=== PATIENT | male | born 1985 | race Two or more races ===

== ENCOUNTER 2024-09-16 05:15 | Inpatient (IN) | payer OTHER ==
[~2024-09-16] VITALS: Ht 182.9 cm; Wt 90.7 kg
[2024-09-16] MEDS ORDERED: HYDROmorphone HCl/Pf 1MG SYR IV ONE (05:45)
[2024-09-16] MEDS ORDERED: NS 1,000 ML IV SCH (05:45)
[2024-09-16] MEDS ORDERED: Ondansetron HCl 2 MG / ML 2ML Vial IV ONE (05:45)
[2024-09-16 06:10] LABS: Alanine Aminotransfer (ALT/SGP 24.0 U/L (12-78); Albumin, Blood 3.5 g/dL (3.4-5.0); Albumin/Globulin Ratio 0.6 (0.8-1.8); Anion Gap 12.0 mmol/L (3-11); Aspartate Aminotrans (AST/SGOT 38.0 U/L (12-37); Bilirubin, Total 0.7 mg/dL (0.1-1.0); Blood Urea Nitrogen 8.0 mg/dL (8-24); CO2, Blood 20.0 mmol/L (21-32); Calcium, Blood 9.6 mg/dL (8.5-10.1); Chloride, Blood 107.0 mmol/L (98-108); Creatinine, Blood 0.94 mg/dL (0.60-1.20); Globulin, Blood 5.4 g/dL (2.2-4.0); Glucose, Blood 133.0 mg/dL (70-99); Potassium, Blood 4.7 mmol/L (3.5-5.5); Sodium, Blood 134.0 mmol/L (136-145); Total Protein, Blood 8.9 g/dL (6.4-8.2)
[2024-09-16 06:12] LABS: BASOPHILS ABSOLUTE AUTO 0.09 K/mm3 (0.00-0.23); BASOPHILS PERCENT AUTO 0 % (0-2); EOSINOPHILS ABSOLUTE AUTO 0.18 K/mm3 (0.00-0.68); EOSINOPHILS PERCENT AUTO 1 % (0-6); Hematocrit 50.8 % (37.0-53.0); Hemoglobin 15.9 g/dL (13.5-17.5); IMMATURE GRAN ABSOLUTE AUTO 0.13 K/mm3 (0.00-0.10); IMMATURE GRAN PERCENT AUTO 1 % (0-1); LYMPHOCYTES ABSOLUTE AUTO 3.16 K/mm3 (0.84-5.20); LYMPHOCYTES PERCENT AUTO 14 % (21-46); MONOCYTES ABSOLUTE AUTO 1.59 K/mm3 (0.16-1.47); MONOCYTES PERCENT AUTO 7 % (4-13); Mean Corpuscular HGB Conc 31.3 g/dL (31.5-36.5); Mean Corpuscular Volume 81 fL (80-100); NEUTROPHILS ABSOLUTE AUTO 17.36 K/mm3 (1.96-9.15); NEUTROPHILS PERCENT AUTO 77 % (41-73); NRBC ABSOLUTE 0.00 K/mm3 (0.00-0.02); NRBC Auto 0.0 /100 WBC (0.0-0.2); RDW Coefficient Variation 19.8 % (11.7-14.2); RDW Standard Deviation 55.2 fL (35.1-46.3)
[2024-09-16 06:31] LABS: Platelet Count 358 K/mm3 (150-400)
[2024-09-16 09:46] LABS: Source, Urine Clean Catch
[2024-09-16 09:52] LABS: Bilirubin, Urine Neg (Neg); Color, Urine Yellow (P-Yellow); Glucose Qualitative, Urine Neg (Neg); Ketones, Urine Neg (Neg); Leukocyte Esterase, Urine Neg (Neg); Protein, Urine 2+ (Neg); Specific Gravity, Urine 1.010 (1.003-1.022); Urobilinogen, Urine NORM (Normal)
[2024-09-16 10:00] LABS: Red Blood Cells, Urine 0-2 /hpf (0-2); White Blood Cells, Urine 0-2 /hpf (0-5)
[2024-09-16] MEDS ORDERED: Ondansetron HCl 2 MG / ML 2ML Vial IV PRN (10:15)
[2024-09-16] MEDS ORDERED: HYDROmorphone HCl/Pf 1MG SYR IV PRN (11:05)
[2024-09-16 13:16] VITALS: BP 120/75
[2024-09-16 15:34] VITALS: BP 121/77
--- NOTE | 2024-09-16 19:42 | NUR ---
ASSUMPTION OF CARE. CLIENT ADMITTED TO FROM THE ED FOR SMALL BOWEL OBSTRUCTION. 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 SPEAKS PRIMARILY ARIBIC. BACON SKIN LIFTER PHONE PLACED IN CLIENTS ROOM. CLIENT REMAINS ON NPO DIET WITH LR INFUSING AT 125ML/HOUR. ABDOMINAL CT PERFORMED IN ED. CLIENT C/O OF PAIN/TENDERNESS TO UPPER RIGHT QUADRANT OF ABDOMEN. BED IS IN LOW POSITION AND CALL LIGHT IS WITHIN REACH.
[2024-09-16 20:44] VITALS: BP 116/62
--- NOTE | 2024-09-17 04:17 | NUR ---
SHIFT SUMMARY PATIENT IS ALERT AND ORIENTED. PATIENT HAS HAD NO ACUTE EVENTS THIS SHIFT. VITAL SIGNS REVIEWED. PATIENT HAS COMPLAINED OF PAIN THIS SHIFT. PATIENT HAS HAD NO COMPLAINTS OF SOB, NAUSEA OR VOMITTING. BED IN LOCKED AND LOWEST POSITION.
[2024-09-17 04:34] VITALS: BP 113/67
[2024-09-17 05:46] LABS: Hematocrit 40.7 % (37.0-53.0); Hemoglobin 12.9 g/dL (13.5-17.5); Mean Corpuscular HGB Conc 31.7 g/dL (31.5-36.5); Mean Corpuscular Volume 82 fL (80-100); NRBC ABSOLUTE 0.00 K/mm3 (0.00-0.02); NRBC Auto 0.0 /100 WBC (0.0-0.2); RDW Coefficient Variation 18.6 % (11.7-14.2); RDW Standard Deviation 55.2 fL (35.1-46.3)
[2024-09-17 06:30] LABS: Platelet Count 202 K/mm3 (150-400)
[2024-09-17 08:05] VITALS: BP 115/68
[2024-09-17] MEDS ORDERED: Enoxaparin 40 MG/0.4 ML SYR SC SCH (09:00)
[2024-09-17 12:38] LABS: Alanine Aminotransfer (ALT/SGP 18.0 U/L (12-78); Albumin, Blood 2.7 g/dL (3.4-5.0); Albumin/Globulin Ratio 0.7 (0.8-1.8); Anion Gap 14.0 mmol/L (3-11); Aspartate Aminotrans (AST/SGOT 15.0 U/L (12-37); Bilirubin, Total 0.6 mg/dL (0.1-1.0); Blood Urea Nitrogen 7.0 mg/dL (8-24); CO2, Blood 28.0 mmol/L (21-32); Calcium, Blood 8.8 mg/dL (8.5-10.1); Chloride, Blood 106.0 mmol/L (98-108); Creatinine, Blood 0.96 mg/dL (0.60-1.20); Globulin, Blood 4.0 g/dL (2.2-4.0); Glucose, Blood 77.0 mg/dL (70-99); Potassium, Blood 4.7 mmol/L (3.5-5.5); Sodium, Blood 143.0 mmol/L (136-145); Total Protein, Blood 6.7 g/dL (6.4-8.2)
--- NOTE | 2024-09-17 18:20 | NUR ---
SHIFT SUMMARY NO ACUTE CHANGES, A/Ox4, ABLE TO MAKE NEEDS KNOWN USING HOSPITAL PROVIDER SERVICE DESK ANALYST SERVICES. TREATED FOR PAIN PER EMAR - REFUSING PAIN MEDICATIONS TOWARDS END OF SHIFT. DENIES NAUSEA/VOMITING. REPORTS PASSING GAS AND HAVING SMALL BM. MEDICAL RECORDS FROM [place] RECIEVED AND NOW IN PT CHART - [facility] NOTIFIED BY MANAGER DELIVERY. TOLERATING ADVANCING DIET - CURRENTLY ON CLEAR LIQUIDS, WILL ATTEMPT FULL LIQUID TOMORROW MORNING. PT CURRENTLY RESTING IN BED WITH BED IN LOWEST POSITION AND CALL LIGHT WITHIN REACH.
[2024-09-17 19:27] VITALS: BP 111/70
[2024-09-18 03:21] VITALS: BP 115/64
[2024-09-18 05:20] LABS: BASOPHILS ABSOLUTE AUTO 0.05 K/mm3 (0.00-0.23); BASOPHILS PERCENT AUTO 1 % (0-2); EOSINOPHILS ABSOLUTE AUTO 0.17 K/mm3 (0.00-0.68); EOSINOPHILS PERCENT AUTO 2 % (0-6); Hematocrit 39.2 % (37.0-53.0); Hemoglobin 12.2 g/dL (13.5-17.5); IMMATURE GRAN ABSOLUTE AUTO 0.04 K/mm3 (0.00-0.10); IMMATURE GRAN PERCENT AUTO 0 % (0-1); LYMPHOCYTES ABSOLUTE AUTO 2.48 K/mm3 (0.84-5.20); LYMPHOCYTES PERCENT AUTO 24 % (21-46); MONOCYTES ABSOLUTE AUTO 0.80 K/mm3 (0.16-1.47); MONOCYTES PERCENT AUTO 8 % (4-13); Mean Corpuscular HGB Conc 31.1 g/dL (31.5-36.5); Mean Corpuscular Volume 82 fL (80-100); NEUTROPHILS ABSOLUTE AUTO 6.87 K/mm3 (1.96-9.15); NEUTROPHILS PERCENT AUTO 66 % (41-73); NRBC ABSOLUTE 0.00 K/mm3 (0.00-0.02); NRBC Auto 0.0 /100 WBC (0.0-0.2); Platelet Count 242 K/mm3 (150-400); RDW Coefficient Variation 18.0 % (11.7-14.2); RDW Standard Deviation 53.6 fL (35.1-46.3)
[2024-09-18 05:54] LABS: Alanine Aminotransfer (ALT/SGP 14.0 U/L (12-78); Albumin, Blood 2.7 g/dL (3.4-5.0); Albumin/Globulin Ratio 0.6 (0.8-1.8); Anion Gap 7.0 mmol/L (3-11); Aspartate Aminotrans (AST/SGOT 10.0 U/L (12-37); Bilirubin, Total 0.4 mg/dL (0.1-1.0); Blood Urea Nitrogen 5.0 mg/dL (8-24); CO2, Blood 29.0 mmol/L (21-32); Calcium, Blood 8.6 mg/dL (8.5-10.1); Chloride, Blood 105.0 mmol/L (98-108); Creatinine, Blood 0.88 mg/dL (0.60-1.20); Globulin, Blood 4.3 g/dL (2.2-4.0); Glucose, Blood 87.0 mg/dL (70-99); Potassium, Blood 3.8 mmol/L (3.5-5.5); Sodium, Blood 137.0 mmol/L (136-145); Total Protein, Blood 7.0 g/dL (6.4-8.2)
--- NOTE | 2024-09-18 06:24 | NUR ---
SHIFT SUMMARY PT IS ALERT AND ORIENTED TIMES 4. PT IS FULL CODE. ADMITTED FOR SMALL BOWEL OBSTRUCTION. . PT REQUESTED PAIN MEDICATION DILAUDID IV ALONG WITH ANTI-NAUSEA MEDICATION AT 2203. PT APPEARED TO SLEEP ON AND OFF THROUGH THE NIGHT. BED IS IN LOW POSITION, RAILS TIMES TWO, AND CALL LIGHT WITHIN REACH.
[2024-09-18 08:06] VITALS: BP 106/64
--- NOTE | 2024-09-18 16:40 | NUR ---
SHIFT SUMMARY NO ACUTE CHANGES, A/Ox4, ABLE TO MAKE NEEDS KNOWN AND ASSESS PT USING HOSPITAL PROVIDED GLOBAL COMPENSATION MANAGER SERVICES. TREATED FOR PAIN/NAUSEA PER EMAR. PT DENIES INCREASED PAIN/NAUSEA WITH ADVANCED DIET. PT NOW ON SOFT/BITE SIZED DIET. IV SALINE LOCKED. INDEPENDENT IN ROOM. PT CALLS APPROPRIATELY.
[2024-09-18 20:06] VITALS: BP 105/66
[2024-09-19 05:22] VITALS: BP 105/67
--- NOTE | 2024-09-19 05:23 | NUR ---
SHIFT SUMMARY PT IS ALERT AND ORIENTED TIMES 4. PT IS FULL CODE. ADMITTED FOR SMALL BOWEL OBSTRUCTION. . PT REQUESTED PAIN MEDICATION DILAUDID IV ALONG WITH ANTI-NAUSEA MEDICATION. PT WALKED AROUND HOSPITAL FOR UP TO 30 MINUTES AT A TIME. PT APPEARED TO SLEEP ON AND OFF THROUGH THE NIGHT. BED IS IN LOW POSITION, RAILS TIMES TWO, AND CALL LIGHT WITHIN REACH.
[2024-09-19 07:16] VITALS: BP 119/70
[2024-09-19] MEDS ORDERED: HYDROmorphone HCl/Pf 1MG SYR IV PRN (07:30)
[2024-09-19] MEDS ORDERED: OxyCODONE 5 mg/Acetamin 325 mg TABLET PO PRN (07:30)
[2024-09-19] MEDS ORDERED: Ondansetron 4 MG SoluTab MM PRN (07:35)
[2024-09-19] MEDS ORDERED: Ondansetron HCl 2 MG / ML 2ML Vial IV PRN (07:35)
[2024-09-19] MEDS ORDERED: FAMO20 PO (11:12)
[2024-09-19] MEDS ORDERED: ONDA4ODT MM (11:12)
[2024-09-19] MEDS ORDERED: Prednisone10 MG PO (11:13)
[2024-09-19] MEDS ORDERED: MIRALAX1714 PO (11:13)
--- NOTE | 2024-09-19 12:15 | NUR ---
PT DISCHARGED TO HOME. PT REPORTED TO SET UP AN UBER RIDE BACK TO [facility]. MEDICATIONS FAXED TO [facility]. DISCHARGE INSTRUCTIONS PROVIDED AND EDUCATED ON AT TIME OF DISCHARGE.
== END 2024-09-19 12:15 | disposition home or self-care (01) | DRG 387 ==
LOC: ER 05:15 → MEDS 05:16 → ERHOLD 05:16 → MEDS 13:08
PROVIDERS: Student in an Organized Health Care Education/Training Program; ADMIT Internal Medicine
DX: K50.90 Crohn's disease, unspecified, without complications (principal); D72.829 Elevated white blood cell count, unspecified; Z90.49 Acquired absence of other specified parts of digestive tract
CPT/HCPCS: 36415; 74177; 80053; 81001; 82947; 83690; 85025; 87086; 94762; 96374; 96375; 99285-25; G0378; J1171; J1650; J2405; J7030; J7120; J7512; Q9967